=== PATIENT | male | born 1985 | race Two or more races ===

== ENCOUNTER 2023-09-14 19:42 | Emergency (ER) | payer MEDICAID ==
[~2023-09-14] VITALS: Ht 160 cm; Wt 122.0 kg
[2023-09-14 19:58] VITALS: TEMP 98.9
[2023-09-14 20:19] LABS: MEAN CORPUSCULAR HEMOGLOBIN 29.6 pg (26.0-34.0); MEAN CORPUSCULAR HGB CONC 34.1 G/dL (31.0-37.0); MEAN CORPUSCULAR VOLUME 87 fL (80-100); MONOCYTES # (AUTO) 0.3 K/uL (0.1-1.0); NEUTROPHILS # (AUTO) 5.2 K/uL (1.8-7.7); WHITE BLOOD COUNT (AUTO) 7.7 K/uL (4.5-11.0)
[2023-09-14 20:27] LABS: BASOPHILS % (AUTO) 0.9 % (0.0-2.0); EOSINOPHILS % (AUTO) 1.3 % (1.0-6.0); HEMATOCRIT 46.5 % (41-53); HEMOGLOBIN 15.9 g/dL (13.5-17.5); LYMPHOCYTES # (AUTO) 2.1 K/uL (1.0-4.8); LYMPHOCYTES % (AUTO) 26.9 % (22.0-44.0); MONOCYTES % (AUTO) 4.3 % (2.0-9.0); NEUTROPHILS % (AUTO) 66.6 % (40.0-70.0); PLATELET COUNT (AUTO) 177 K/uL (150-450); RED BLOOD CELL COUNT(AUTO) 5.36 MIL/uL (4.50-5.90); RED CELL DISTRIBUTION WIDTH 13.6 % (11.5-14.5)
[2023-09-14 20:29] LABS: ANION GAP 9 mmol/L (8-16); CALCIUM, TOTAL 9.6 mg/dL (8.8-10.5); CARBON DIOXIDE 27 mmol/L (22-29); CHLORIDE 101 mmol/L (98-107); CREATININE 1.07 mg/dL (0.60-1.30); GLOMERULAR FILTR. RATE CALC > 60 mL/min (>60); GLUCOSE,RANDOM 148 mg/dL (70-110); POTASSIUM 3.5 mmol/L (3.5-5.1); SODIUM SERUM 137 mmol/L (136-145); UREA NITROGEN, BLOOD 11 mg/dL (7-18)
[2023-09-14 20:33] LABS: INR 0.9 (0.9-1.1); PROTHROMBIN TIME 9.9 SEC (9.4-11.6)
[2023-09-14 20:37] LABS: TROPONIN I-HIGH SENSITIVITY 6 ng/L (<76)
[2023-09-14 20:39] LABS: B-TYPE NATRIURETIC PEPTIDE < 5 pg/mL (0-100)
[2023-09-14 20:40] LABS: ALANINE AMINOTRANSFERASE 33 U/L (12-78); ALBUMIN 3.9 g/dL (3.4-5.0); ALKALINE PHOSPHATASE 82 U/L (46-116); ASPARTATE AMINOTRANSFERASE 15 U/L (15-37); BILIRUBIN,TOTAL 0.2 mg/dL (0.1-1.0); CREATINE KINASE, TOTAL ONLY 147 U/L (39-308)
[2023-09-14] MEDS ORDERED: IBUP-1554 PO (22:28)
[2023-09-14] MEDS ORDERED: ACET-66 PO (22:28)
[2023-09-14] MEDS ORDERED: GUAIFDM PO (22:28)
[2023-09-14 22:45] VITALS: BP 136/75; PULSE 78; RESP 20
== END 2023-09-14 23:00 | disposition home or self-care (01) ==
LOC: EMS 19:42
DX: J06.9 Acute upper respiratory infection, unspecified (principal); R07.89 Other chest pain; J20.9 Acute bronchitis, unspecified; F17.210 Nicotine dependence, cigarettes, uncomplicated; E11.9 Type 2 diabetes mellitus without complications
CPT/HCPCS: 71045; 80053; 82550; 83880; 84484; 85025; 85610; 85730; 87430; 93005; 99285; 36415-L1; 36415-TC